=== PATIENT | female | born 1955 | race Caucasian/White ===

== ENCOUNTER 2017-10-13 07:08 | Emergency (ER) | payer OTHER ==
[2017-10-13 07:16] VITALS: BP 157/87; PULSE 86; TEMP 98.5; BMI 22.5
--- NOTE | 2017-10-13 07:23 | PDOC ---
History of Present Illness - General Chief Complaint: Shortness of Breath Stated Complaint: DIFF BREATHING Time Seen by Provider: 10/13/17 07:14 History Source: Patient Exam Limitations: No Limitations - History of Present Illness Initial Comments: 62 yo F history asthma presents with coughing for past week. She called her PMD , who originally prescribed azithromycin, then she was started on levaquin yesterday when she did not improve. She has not had a chest x-ray. She states she has been using her inhaler multiple times per day, but has not improved. She denies exertional dyspnea, wheezing, cp, fever. Cough is nonproductive. No recent steroid use. Her asthma symptoms are typically intermittent. She does not typically use her inhaler unless she gets URI symptoms. Past History - Past Medical History Allergies/Adverse Reactions: Allergies Allergy/AdvReac Type Severity Reaction Status Date / Time Penicillins Allergy Intermediate Hives Verified 04/22/13 17:58 metronidazole [From Flagyl] Allergy Verified 10/13/17 07:10 Home Medications: Ambulatory Orders Albuterol Sulfate Inhaler - [Ventolin HFA Inhaler -] 1 - 2 inh PO PRN 07/22/14 Levofloxacin [Levaquin] 500 mg PO DAILY 10/13/17 Montelukast Sodium [Singulair] 10 mg PO DAILY 10/13/17 predniSONE [Deltasone -] 40 mg PO DAILY #8 tablet 10/13/17 Asthma: Yes COPD: No - Suicide/Smoking/Psychosocial Hx Smoking History: Never smoked Have you smoked in the past 12 months: No Information on smoking cessation initiated: No Hx Alcohol Use: Yes (DAILY) Drug/Substance Use Hx: No Substance Use Type: None Review of Systems - Review of Systems Able to Perform ROS?: Yes Comments:: GENERAL/CONSTITUTIONAL: No fever or chills. No weakness. HEAD, EYES, EARS, NOSE AND THROAT: No change in vision. No ear pain or discharge. No sore throat. CARDIOVASCULAR: No chest pain or shortness of breath. RESPIRATORY: +Hacking dry cough. No wheezing or hemoptysis. GASTROINTESTINAL: No nausea, vomiting, diarrhea or constipation. GENITOURINARY: No dysuria, frequency, or change in urination. MUSCULOSKELETAL: No joint or muscle swelling or pain. No neck or back pain. SKIN: No rash NEUROLOGIC: No headache, vertigo, loss of consciousness, or change in strength/ sensation. ENDOCRINE: No increased thirst. No abnormal weight change. HEMATOLOGIC/LYMPHATIC: No anemia, easy bleeding, or history of blood clots. ALLERGIC/IMMUNOLOGIC: No hives or skin allergy. *Physical Exam - Vital Signs Last Vital Signs Temp Pulse Resp BP Pulse Ox 98.5 F 86 20 157/87 95 10/13/17 07:09 10/13/17 07:09 10/13/17 07:09 10/13/17 07:09 10/13/17 07:09 - Physical Exam Comments: GENERAL: Awake, alert, and fully oriented, in no acute distress HEAD: No signs of trauma EYES: PERRLA, EOMI, sclera anicteric, conjunctiva clear ENT: Auricles normal inspection, hearing grossly normal, nares patent, oropharynx clear without exudates. Moist mucosa NECK: Normal ROM, supple, no lymphadenopathy, JVD, or masses LUNGS: Good air entry B/L. Clear to auscultation bilaterally. Intermittent episodes with dry hacking cough. Speaking full sentences. HEART: Regular rate and rhythm, normal S1 and S2, no murmurs, rubs or gallops ABDOMEN: Soft, nontender, normoactive bowel sounds. No guarding, no rebound. No masses EXTREMITIES: Normal range of motion, no edema. No clubbing or cyanosis. No cords, erythema, or tenderness NEUROLOGICAL: Cranial nerves II through XII grossly intact. Normal speech, normal gait SKIN: Warm, Dry, normal turgor, no rashes or lesions noted. Medical Decision Making - Medical Decision Making 10/13/17 08:49 Pt reexamined. Cough has resolved. CXR reviewed, no acute process. Will DC home with rx for prednisone. *DC/Admit/Observation/Transfer Diagnosis at time of Disposition: Asthma exacerbation Qualifiers: Asthma severity: unspecified severity Asthma persistence: unspecified Qualified Code(s): J45.901 - Unspecified asthma with (acute) exacerbation - Discharge Dispostion Disposition: HOME Condition at time of disposition: Stable Decision to Admit order: No - Prescriptions Prescriptions: predniSONE [Deltasone -] 40 mg PO DAILY #8 tablet - Referrals - Patient Instructions Printed Discharge Instructions: DI for Asthma -- Adult - Post Discharge Activity
[2017-10-13] MEDS ORDERED: predniSONE 20 MG TABLET (UD) PO ONE (07:28)
[2017-10-13] MEDS: ALBUTEROL SO4 2.5/IPRATROPIUM 0.5 INH SOL 3 ML VIAL.NEB. NEB SCH ×4 (07:30→08:18)
[2017-10-13] MEDS ORDERED: predniSONE 20 MG TABLET (UD) ONE (07:31)
[2017-10-13] MEDS ORDERED: ALBUTEROL SO4 2.5/IPRATROPIUM 0.5 INH SOL 3 ML VIAL.NEB. NEB ONE (07:31)
== END 2017-10-13 09:00 | disposition home or self-care (01) ==
LOC: FER 07:08
PROC: 3E0F7GC Introduction of Other Therapeutic Substance into Respiratory Tract, Via Natural or Artificial Opening (ICD-10-PCS; principal; 2017-10-13)
DX: J45.901 Unspecified asthma with (acute) exacerbation (principal); Z88.8 Allergy status to other drugs, medicaments and biological substances
CPT/HCPCS: 71046-TC-FY; 99282-25; J7620

== ENCOUNTER 2019-10-12 10:30 | Day surgery (SDC) | payer OTHER ==
[2019-10-12 10:40] VITALS: BMI 23.3
[2019-10-12 12:47] VITALS: TEMP 98
[2019-10-12 14:55] VITALS: BP 107/64; PULSE 76
--- NOTE | 2019-10-17 12:19 | PATH ---
Surgical Pathology Report Patient Name: LILLY SCHWARTZ [facility]. Rec. #: [id number] /Age/Gender: 1955 (Age: 64) / F Account: [id number] Location: [facility] Taken: 10/12/2019 Received: 10/12/2019 Reported: 10/17/2019 Physicians: Miri Dominguez M.D. Specimen(s) Received A: POLYPS SIGMOID COLON @ 20CM B: RECTAL POLYPS Clinical History History of polyps Postoperative diagnosis: Polyps Final Diagnosis A. sigmoid colon at 20 cm, polyps, biopsy: Sessile serrated polyps. B. rectal polyps, biopsy: Sessile serrated polyps. Electronically Signed Alyssa Hendrickson M.D. Gross Description A. Received in formalin, labeled "polyps sigmoid colon at 20 cm" are 3 sheppard, irregular portions of soft tissue ranging from 0.1-0.2 cm. in greatest dimension. The specimens are submitted in toto in one cassette. B. Received in formalin, labeled "rectal polyps" are 3 sheppard, irregular portions of soft tissue ranging from 0.2-0.5 cm. in greatest dimension. The specimens are submitted in toto in one cassette. 10/15/2019 saudi10/15/2019
== END 2019-10-12 13:00 | disposition home or self-care (01) ==
LOC: FASU 10:30
PROVIDERS: ATTEND Internal Medicine Gastroenterology
PROC: 0DBN8ZX Excision of Sigmoid Colon, Via Natural or Artificial Opening Endoscopic, Diagnostic (ICD-10-PCS; principal; 2019-10-12 12:04)
DX: Z86.010 Personal history of colon polyps (principal); D12.5 Benign neoplasm of sigmoid colon; D12.8 Benign neoplasm of rectum; K64.0 First degree hemorrhoids
CPT/HCPCS: 88305-TC

== ENCOUNTER 2021-07-13 12:05 | Emergency (ER) | payer BC, OTHER ==
[2021-07-13 12:24] VITALS: BP 121/69; PULSE 79; TEMP 97.8; BMI 21.8
[2021-07-13] MEDS ORDERED: DIPHTH,PERTUSS(ACELL),TET 0.5 ML DISP.SYRIN IM ONE ×2 (12:45→12:48)
== END 2021-07-13 13:25 | disposition home or self-care (01) ==
LOC: FER 12:05
PROC: 3E0234Z Introduction of Serum, Toxoid and Vaccine into Muscle, Percutaneous Approach (ICD-10-PCS; principal; 2021-07-13)
DX: S01.511A Laceration without foreign body of lip, initial encounter (principal); W10.9XXA Fall (on) (from) unspecified stairs and steps, initial encounter
CPT/HCPCS: 90715; 99284-25

== ENCOUNTER 2021-07-17 09:34 | Emergency (ER) | payer BC ==
[2021-07-17 09:39] VITALS: BP 133/62; PULSE 80; TEMP 98; BMI 21.8
[2021-07-17] MEDS ORDERED: LIDOCAINE HCL/EPINEPHRINE/PF 20 ML VIAL ONE (09:41)
[2021-07-17] MEDS ORDERED: LIDOCAINE HCL/EPINEPHRINE/PF 10 ML VIAL IM ONE (09:42)
== END 2021-07-17 10:23 | disposition home or self-care (01) ==
LOC: FER 09:34
DX: Z48.02 Encounter for removal of sutures (principal)
CPT/HCPCS: 99281-25